=== PATIENT | female | born 1990 | race Caucasian/White ===

== ENCOUNTER 2024-01-26 18:18 | Emergency (ER) | payer MEDICAID, SELFPAY ==
--- NOTE | 2024-01-26 18:19 | EKG_ITS ---
[facility] Test Date: 2024-01-26 Pat Name: VU GONZALEZ Department: Room: - Gender: Female Eligibility And Occupancy Interviewer: : 1990 Requested By: Durga Ma Order Number: [id number] Reading MD: Durga Ma Measurements Intervals [place] Rate: 99 P: 39 [place]: 124 QRS: 24 QRSD: 79 T: 51 QT: 333 QTc: 429 Interpretive Statements SINUS RHYTHM No previous ECG available for comparison /store/S0/[id number].pdf
[2024-01-26 18:29] VITALS: BP 137/86; PULSE 98; RESP 18; TEMP 36.6; O2SAT 97; BMI 37.5
--- NOTE | 2024-01-26 18:36 | PD.EDRME ---
Rapid Medical Screening Exam [facility] Arrival date/time: 01/26/24 18:18 34F with no significant PMH presents to ED with 3 days of dizziness that is worse with head movements, as well as N/V from dizziness. Patient denies any pain including ab pain and NOONAN. Chief Complaint: Dizziness Vital signs: Vital Signs Temperature 97.8 F 01/26/24 18:29 Pulse Rate 98 01/26/24 18:29 Respiratory Rate 18 01/26/24 18:29 Blood Pressure 137/86 H 01/26/24 18:29 Pulse Oximetry (%) 97 01/26/24 18:29 Oxygen Delivery Method Room Air 01/26/24 18:29
[2024-01-26] MEDS: MECLIZINE HCL 25 MG TABLET 50 MG PO (18:40)
[2024-01-26 19:14] LABS: Basophils % (Auto) 0 % (0-2.5); Eosinophils % (Auto) 1 % (0-10); Hematocrit 40.3 % (36.0-46.0); Hemoglobin 13.3 g/dL (12.0-16.0); Immature Granulocytes % (Auto) 0 % (0-0); Immature Granulocytes Auto 0.02 Thou/mm3 (0.00-0.00); Lymphocytes # (Auto) 1.5 Thou/mm3 (1.0-4.8); Lymphocytes % (Auto) 20 % (10-50); Mean Corpuscular Hemoglobin 29.2 pg (25.0-35.0); Mean Corpuscular Volume 88 fL (80-100); Monocytes # (Auto) 0.5 Thou/mm3 (0.0-0.8); Monocytes % (Auto) 7 % (0-12); Neutrophils # (Auto) 5.2 Thou/mm3 (1.8-7.7); Neutrophils % (Auto) 72 % (37-80); Nucleated Red Blood Cell % 0 /100 WBC (0); Platelet Count 275 Thou/mm3 (140-440); RDW Standard Deviation 41.6 fL (36.4-46.3); Red Blood Count 4.56 Miln/mm3 (4.00-5.20); White Blood Count 7.2 Thou/mm3 (3.6-11.0)
[2024-01-26 19:32] LABS: Alanine Aminotransferase 44 U/L (10-49); Albumin, Serum 4.9 gm/dL (3.5-5.0); Albumin/Globulin Ratio 1.5 (1.2-2.2); Alkaline Phosphatase 82 U/L (46-116); Anion Gap 8 (7-16); Aspartate Amino Transferase 43 U/L (0-34); BUN/Creatinine Ratio 9 Ratio (12-20); Bilirubin,Total 0.7 mg/dL (0.3-1.2); Blood Urea Nitrogen 7 mg/dL (9-23); Calcium 10.2 mg/dL (8.3-10.6); Calcium (Corrected) 10.2 mg/dL (8.5-10.1); Carbon Dioxide 28.1 mMol/L (20.0-31.0); Chloride 105 mMol/L (98-107); Creatinine (Component) 0.8 mg/dL (0.6-1.3); Estimated Creatinine Clearance 120.5 mL/min (>60); Globulin 3.2 gm/dL (2.3-3.5); Glucose 98 mg/dL (74-106); Osmolality,Calculated 279 (275-295); Potassium 3.7 mMol/L (3.4-5.1); Sodium 141 mMol/L (136-145); Total Protein 8.1 gm/dL (5.7-8.2); eGFR > 60 See Note
[2024-01-26 20:07] LABS: Collection Type, Urine Clean Catch
[2024-01-26 20:22] LABS: HCG Qualitative,Urine Negative
[2024-01-26 20:25] LABS: Bacteria,Urine Rare; Bilirubin,Urine 1+ (Negative); Blood,Urine Trace (Negative); Clarity,Urine Turbid (Clear/Hazy); Color,Urine Yellow (Lt Yel-Yel); Glucose, Urine Negative (Negative); Ketones,Urine 2+ (Negative); Leukocyte Esterase,Urine Negative (Negative); Nitrite,Urine Negative (Negative); PH,Urine 5.5 (5.0-7.0); Protein,Urine 1+ (Neg - Trace); RBC,Urine 6 /hpf (0-3); Specific Gravity,Urine 1.026 (1.001-1.035); Squamous Epithelial Cell,Urine 3 /hpf (0-5); WBC,Urine 5 /hpf (0-5)
[2024-01-26 20:50] LABS: Amphetamine/Methamp Scrn,U Negative (Negative); Barbiturate Screen,Urine Negative (Negative); Benzodiazepines Screen,Urine Negative (Negative); Benzoylecgonine Screen, Ur Negative (Negative); Fentanyl Screen,Urine Negative (Negative); Opiate Screen,Urine Negative (Negative); THC Screen,Urine Negative (Negative)
== END 2024-01-27 00:32 | disposition left against medical advice (07) ==
LOC: SERX 01-27 01:21
PROVIDERS: Physician Assistant; Emergency Provider Emergency Medicine
DX: R42 Dizziness and giddiness (principal); R11.2 Nausea with vomiting, unspecified; Z53.21 Procedure and treatment not carried out due to patient leaving prior to being seen by health care provider
CPT/HCPCS: 36415; 80053; 80307; 81001; 81025; 85025; 93005; 99281; A9270